=== PATIENT | female | born 1970 | race Caucasian/White ===

== ENCOUNTER 2018-09-19 07:58 | Emergency (ER) | payer BC, MEDICARE ==
[2018-09-19] MEDS ORDERED: Diazepam 5 MG TAB ONE (08:35)
[2018-09-19] MEDS ORDERED: Ketorolac Tromethamine 60 MG/2 ML VIAL ONE (08:35)
[2018-09-19] MEDS ORDERED: Triamcinolone 40 MG/ML VIAL IM SCH (09:00)
[2018-09-19 09:15] LABS: Bilirubin Negative (Negative); Blood, Urine Negative (Negative); Clarity CLEAR (Clear); Glucose, Urine (Dipstick) Negative (Negative); Leukocyte Small (Negative); Nitrite Negative (Negative); Protein, Urine (Dipstick) Negative (Neg-Trace); Specific Gravity, Urine 1.011 (1.002-1.036); Urobilinogen 0.2 mg/dL (0.2-1.0)
[2018-09-19] MEDS ORDERED: Morphine 4 MG/ML VIAL ONE (10:17)
--- NOTE | 2018-09-19 10:18 | RAD ---
LUMBAR SPINE THREE VIEWS: HISTORY: Low back pain. COMPARISON: MRI from 2013. FINDINGS: Interbody fusion hardware is unchanged at L5-S1. S1 is a lumbosacral transitional vertebra. There is anterolisthesis of L4/L5. There is mild narrowing at the L4-L5 and L3-L4 disk interspaces. No acute fracture or malalignment. IMPRESSION: Mild degenerative disc space height loss at L4-L5 with grade 1 anterolisthesis. POS: [facility]
== END 2018-09-19 11:32 | disposition home or self-care (01) ==
LOC: ERS 07:58
DX: M54.5 Low back pain (principal); E03.9 Hypothyroidism, unspecified; I10 Essential (primary) hypertension; F32.9 Major depressive disorder, single episode, unspecified; Z79.899 Other long term (current) drug therapy
CPT/HCPCS: 72100; 81003; 81015; 96372; J1885; J2270; J3301

== ENCOUNTER 2018-10-16 09:53 | Emergency (ER) | payer OTHER, MEDICARE ==
--- NOTE | 2018-10-16 10:39 | RAD ---
CHEST ONE VIEW: History: Chest pain. Headache. Comparison: 09-13-13 FINDINGS: Cardiac silhouette is magnified by projection. Pulmonary vasculature is unremarkable. Mediastinum is midline. No lobar consolidation or evidence of pneumothorax. Post-operative changes right shoulder. C ardiac monitor leads overlie the chest. IMPRESSION: No active cardiopulmonary abnormalities are demonstrated. POS: [facility]
[2018-10-16 10:41] LABS: #Basophils 0.1 thou/uL (0.0-0.2); #Eosinphils 0.1 thou/uL (0.0-0.7); #Lymphocytes 2.8 thou/uL (1.20-3.40); #Monocytes 0.6 thou/uL (0.11-0.59); #Neutrophils 5.6 thou/uL (1.40-6.50); %Basophils 1.1 % (0.0-1.0); %Eosinophils 1.3 % (0.0-10.0); %Lymphocytes 30.2 % (21.0-51.0); %Monocytes 6.8 % (0.0-10.0); %Neutrophils 60.6 % (42.0-75.0); Hemoglobin 15.6 g/dL (12.0-16.0); Mean Corpuscular HGB CONC 34.8 g/dL (32.0-36.0); Mean Corpuscular Hemoglobin 32.5 pg (27.0-31.0); Mean Corpuscular Volume 93.6 fL (78.0-98.0); Mean Platelet Volume 8.1 fL (7.4-10.4); Platelet Count 351 thou/uL (130-400); RBC Distribution Width 10.9 % (11.5-14.5); White Blood Cell (WBC) Count 9.2 thou/uL (4.8-10.8)
[2018-10-16] MEDS ORDERED: Ondansetron ODT 4 MG TAB ONE (10:58)
[2018-10-16 11:09] LABS: ALT (SGPT) 69 U/L (8-55); AST (SGOT) 63 U/L (5-34); Albumin 4.8 g/dL (3.5-5.0); Alkaline Phosphatase 75 U/L (40-150); Anion Gap 16 mmol/L (10-20); BUN (Urea Nitrogen) 15 mg/dL (7.0-18.7); Bilirubin, Total 1.5 mg/dL (0.2-1.2); Calc. Creatinine Clearance 0 mL/min (70-130); Calcium 10.7 mg/dL (7.8-10.44); Carbon Dioxide 23 mmol/L (22-29); Chloride 105 mmol/L (98-107); Estimated GFR-MDRD 63; Potassium 4.3 mmol/L (3.5-5.1); Protein, Total 7.8 g/dL (6.0-8.3); Sodium 140 mmol/L (136-145)
[2018-10-16] MEDS ORDERED: Acetaminophen 500 MG TAB ONE (12:03)
[2018-10-16 13:00] LABS: Glucose 101 mg/dL (70-105)
--- NOTE | 2018-10-20 13:28 | EKG ---
Test Reason : Blood Pressure : / mmHG Vent. Rate : 099 BPM Atrial Rate : 099 BPM P-R Int : 104 ms QRS Dur : 072 ms QT Int : 332 ms P-R-T Axes : 046 071 040 degrees QTc Int : 426 ms Poor data quality, interpretation may be adversely affected Sinus rhythm with sinus arrhythmia with short ID Otherwise normal ECG Confirmed by ITA ALEJANDRO ([id number]), communications editor DONAVON CARR ([id number] on 10/20/2018 1:28:31 PM Referred By: Confirmed By:ITA ALEJANDRO
== END 2018-10-16 15:07 | disposition home or self-care (01) ==
LOC: ERS 09:53
DX: R07.2 Precordial pain (principal); R51 Headache; E03.9 Hypothyroidism, unspecified; I10 Essential (primary) hypertension; F32.9 Major depressive disorder, single episode, unspecified
CPT/HCPCS: 36415; 71045; 80053; 84484; 85025; 93005; Q0162

== ENCOUNTER 2019-08-07 09:37 | Outpatient (CLI) | payer OTHER, MEDICARE ==
--- NOTE | 2019-08-07 10:52 | ULT ---
US Hepatic Doppler History: Abnormal LFTs Comparison: None. Findings: Real-time grayscale, color, and spectral analysis of the liver was performed. Visualized portion of the pancreas, aorta, and IVC are unremarkable. Diffuse increased hepatic echotexture without mass. Normal directional flow of the hepatic veins and portal veins. Normal phasicity. The hepatic parenchyma is poorly penetrated due to the increased echotexture. Liver measures 19 cm in length. Common bile duct measures 6-7 mm, normal for postcholecystectomy state. Prior cholecystectomy. Spleen measures 9.9 cm in length. Splenic artery and vein are patent. Impression: 1. Hepatomegaly with diffuse steatosis. 2. Normal directional flow within the hepatic vessels.
== END 2019-08-07 09:38 | disposition home or self-care (01) ==
LOC: ULT 09:37
PROVIDERS: ATTEND Physician Assistant Medical
DX: R94.5 Abnormal results of liver function studies (principal); R16.0 Hepatomegaly, not elsewhere classified; E88.89 Other specified metabolic disorders
CPT/HCPCS: 76705

== ENCOUNTER 2019-10-22 07:54 | Outpatient (CLI) | payer BC, MEDICARE ==
--- NOTE | 2019-10-22 12:38 | NM ---
EXAM: Nuclear medicine gastric emptying COMPARISON: None HISTORY: Abdominal pain TECHNIQUE: A nuclear medicine gastric emptying exam was administered after administration of 2.1 mCi of technetium 99m sulfur colloid mixed with eggs. FINDINGS: No gastroesophageal reflux was seen during the examination. 30 minute emptying is 35%. 60 minutes emptying is 12%. 120 minute emptying is 37 %. 180 minute emptying is 54 % T1/2 of gastric emptying is 168 minutes. IMPRESSION: Delayed gastric emptying
== END 2019-10-22 07:55 | disposition home or self-care (01) ==
LOC: NM 07:54
PROVIDERS: ATTEND Physician Assistant Medical
DX: K21.9 Gastro-esophageal reflux disease without esophagitis (principal); R13.19 Other dysphagia; R11.10 Vomiting, unspecified; K30 Functional dyspepsia
CPT/HCPCS: 78264; A9541

== ENCOUNTER → 2019-10-29 | Day surgery (SDC) | payer BC, MEDICARE | LOC: ENDO/OP 07:15 | PROVIDERS: ATTEND Internal Medicine Gastroenterology | DX: R13.10 Dysphagia, unspecified (principal); K21.9 Gastro-esophageal reflux disease without esophagitis; Z79.899 Other long term (current) drug therapy; Z87.891 Personal history of nicotine dependence; Z88.5 Allergy status to narcotic agent; Z88.8 Allergy status to other drugs, medicaments and biological substances; Z91.018 Allergy to other foods | CPT/HCPCS: 91010 ==

== ENCOUNTER 2022-01-13 13:14 | Outpatient (CLI) | payer BC, MEDICARE ==
[2022-01-13 14:17] LABS: Hemoglobin 12.9 g/dL (12.0-15.5); Mean Corpuscular HGB CONC 35.1 g/dL (32.0-36.0); Mean Corpuscular Hemoglobin 32.6 pg (27.0-33.0); Mean Corpuscular Volume 92.7 fl (81.6-98.3); Mean Platelet Volume 9.9 fl (7.4-10.4); Platelet Count 305 10x3/uL (150-450); RBC Distribution Width 11.6 % (11.5-14.5); Red Blood Cell (RBC) Count 3.96 10x6/uL (3.90-5.03); White Blood Cell (WBC) Count 9.4 10x3/uL (3.5-10.5)
[2022-01-13 14:18] LABS: Bilirubin Neg (Negative); Blood, Urine 250 (Negative); Clarity Clear (Clear); Glucose, Urine (Dipstick) Normal (Negative); Ketone, Urine Negative (Negative); Leukocyte 500 (Negative); Nitrite Negative (Negative); Protein, Urine (Dipstick) 100 mg/dl (Neg-Trace); Urobilinogen Normal mg/dL (Less than 2)
[2022-01-13 14:38] LABS: Bacteria/HPF Rare-Few HPF (None Seen); RBC/HPF 21-50 HPF (0-3); Squamous Epithelial 0-3 HPF (0-3)
[2022-01-13 15:22] LABS: Anion Gap 13 mmol/L (10-20); BUN (Urea Nitrogen) 8 mg/dL (9.8-20.1); Calc. Creatinine Clearance 0 mL/min (70-130); Calcium 9.6 mg/dL (7.8-10.44); Carbon Dioxide 27 mmol/L (22-29); Chloride 103 mmol/L (98-107); Glucose 94 mg/dL (70-105); Potassium 4.8 mmol/L (3.5-5.1); Sodium 138 mmol/L (136-145)
[2022-01-14 00:12] LABS: SARS-CoV-2 PCR by NAA Not Detected (NotDetected)
== END 2022-01-13 13:15 | disposition home or self-care (01) ==
LOC: LABBT 13:14
PROVIDERS: ATTEND Urology
DX: Z01.812 Encounter for preprocedural laboratory examination (principal); Z20.822 Contact with and (suspected) exposure to COVID-19
CPT/HCPCS: 80048; 81001; 85027; 87086; U0003; U0005

== ENCOUNTER 2022-01-31 10:19 | Inpatient (IN) | payer BC, MEDICARE ==
[~2022-01-31 10:19] MED LIST: Iopamidol-370 76% 500 ML 1 ML ONE
[2022-01-31] MEDS ORDERED: Ondansetron PF 4 MG/2 ML Vial ONE ×3 (10:47→16:44)
[2022-01-31] MEDS ORDERED: Morphine 4 MG/ML VIAL ONE ×2 (10:47→12:01)
[2022-01-31] MEDS ORDERED: Ketorolac Tromethamine 30 MG/ML VIAL ONE (11:13)
[2022-01-31 11:34] LABS: #Basophils 0.1 thou/uL (0.0-0.2); #Eosinphils 0.2 thou/uL (0.0-0.7); #Lymphocytes 2.3 thou/uL (1.20-3.40); #Monocytes 0.4 thou/uL (0.11-0.59); #Neutrophils 4.1 thou/uL (1.40-6.50); %Basophils 1.1 % (0.0-1.0); %Lymphocytes 32.5 % (21.0-51.0); %Monocytes 5.7 % (0.0-10.0); %Neutrophils 57.7 % (42.0-75.0); Hemoglobin 12.5 g/dL (12.0-16.0); Mean Corpuscular HGB CONC 33.9 g/dL (32.0-36.0); Mean Corpuscular Hemoglobin 33.4 pg (27.0-31.0); Mean Corpuscular Volume 98.6 fL (78.0-98.0); Mean Platelet Volume 7.1 fL (7.4-10.4); Platelet Count 262 thou/uL (130-400); RBC Distribution Width 10.7 % (11.5-14.5); Red Blood Cell (RBC) Count 3.73 mill/uL (4.20-5.40); White Blood Cell (WBC) Count 7.1 thou/uL (4.8-10.8)
[2022-01-31 11:47] LABS: ALT (SGPT) 20 U/L (8-55); AST (SGOT) 31 U/L (5-34); Alkaline Phosphatase 65 U/L (40-110); Anion Gap 15 mmol/L (10-20); BUN (Urea Nitrogen) 6 mg/dL (9.8-20.1); Bilirubin, Total 1.1 mg/dL (0.2-1.2); Calc. Creatinine Clearance 0 mL/min (70-130); Calcium 9.5 mg/dL (7.8-10.44); Carbon Dioxide 20 mmol/L (22-29); Chloride 105 mmol/L (98-107); Glucose 86 mg/dL (70-105); Potassium 4.7 mmol/L (3.5-5.1); Sodium 135 mmol/L (136-145)
[2022-01-31] MEDS ORDERED: HYDROcodone/Acetaminophen 5/325 mg Tablet ONE (13:32)
[2022-01-31 14:26] LABS: Bacteria/HPF None Seen HPF (None Seen); Bilirubin Negative (Negative); Blood, Urine 2+ (Negative); Clarity Clear (Clear); Glucose, Urine (Dipstick) Normal (Negative); Ketone, Urine Negative (Negative); Leukocyte 75 Leu/uL (Negative); Nitrite Negative (Negative); Protein, Urine (Dipstick) Negative (Neg-Trace); RBC/HPF Greater than 50 HPF (0-3); Specific Gravity, Urine 1.048 (1.002-1.036); Squamous Epithelial 0-3 HPF (0-3); Urobilinogen Normal mg/dL (Less than 2)
[2022-01-31] MEDS ORDERED: cefTRIAXone\\ROCEPHIN 2 GM VIAL ONE (15:35)
[2022-01-31] MEDS ORDERED: Fentanyl 100 MCG/2 ML VIAL ONE (15:36)
[2022-01-31] MEDS ORDERED: Ondansetron PF 4 MG/2 ML Vial IVP PRN (16:11)
[2022-01-31] MEDS ORDERED: HYDROcodone/Acetaminophen 5/325 mg Tablet PO PRN (16:11)
[2022-01-31] MEDS ORDERED: Bisacodyl 5 MG TAB PO PRN (16:11)
[2022-01-31 17:41] VITALS: BMI 23.1
[2022-01-31] MEDS ORDERED: diphenhydrAMINE 25 MG CAP PO PRN (17:42)
[2022-01-31] MEDS ORDERED: Naloxone HCl 0.4 mg/ml Vial IV PRN (17:42)
[2022-01-31] MEDS ORDERED: diphenhydrAMINE 50 MG/ML VIAL IVP PRN (17:42)
[2022-01-31] MEDS ORDERED: fentaNYL Citrate/PF 2,000 MCG in Sodium Chloride 0.9% 60 ML IV PRN (17:42)
[2022-01-31] MEDS ORDERED: diphenhydrAMINE 50 MG/ML VIAL IM PRN (17:42)
[2022-01-31] MEDS ORDERED: [UNRECOGNIZED DRUG - OTHER] FS SCH (17:45)
[2022-01-31] MEDS: Sodium Chloride 0.9% 1,000 ML IV SCH (18:13)
[2022-01-31 18:44] LABS: SARS-CoV-2 NAA Rapid Test Not Detected (NotDetected)
[2022-01-31] MEDS: Gabapentin 300 MG CAP PO SCH (20:00)
[2022-01-31] MEDS: Carvedilol 25 MG TAB PO SCH (20:01)
[2022-01-31] MEDS: Atorvastatin Calcium 10 MG TAB PO SCH (20:01)
[2022-01-31] MEDS: Zolpidem Tartrate 5 MG TAB PO PRN (20:40)
[2022-02-01] MEDS: Sodium Chloride 0.9% 1,000 ML IV SCH ×7 (01:10→23:22)
[2022-02-01 05:43] LABS: #Eosinphils 0.1 thou/uL (0.0-0.7); #Lymphocytes 1.1 thou/uL (1.20-3.40); #Monocytes 0.6 thou/uL (0.11-0.59); #Neutrophils 3.9 thou/uL (1.40-6.50); %Basophils 0.1 % (0.0-1.0); %Lymphocytes 19.3 % (21.0-51.0); %Monocytes 9.7 % (0.0-10.0); %Neutrophils 68.9 % (42.0-75.0); Hemoglobin 11.5 g/dL (12.0-16.0); Mean Corpuscular HGB CONC 34.1 g/dL (32.0-36.0); Mean Corpuscular Volume 99.8 fL (78.0-98.0); Mean Platelet Volume 7.2 fL (7.4-10.4); Platelet Count 224 thou/uL (130-400); RBC Distribution Width 10.9 % (11.5-14.5); Red Blood Cell (RBC) Count 3.38 mill/uL (4.20-5.40); White Blood Cell (WBC) Count 5.7 thou/uL (4.8-10.8)
[2022-02-01] MEDS: Levothyroxine Sodium 88 MCG TAB PO SCH (06:03)
[2022-02-01 06:21] LABS: Anion Gap 13 mmol/L (10-20); BUN (Urea Nitrogen) 6 mg/dL (9.8-20.1); Calc. Creatinine Clearance 81 mL/min (70-130); Calcium 8.6 mg/dL (7.8-10.44); Carbon Dioxide 24 mmol/L (22-29); Chloride 105 mmol/L (98-107); Glucose 119 mg/dL (70-105); Potassium 4.6 mmol/L (3.5-5.1); Sodium 137 mmol/L (136-145)
[2022-02-01] MEDS: Oxybutynin 5 MG TAB PO SCH (09:21)
[2022-02-01] MEDS: Carvedilol 25 MG TAB PO SCH ×2 (10:24→19:56)
[2022-02-01] MEDS: cefTRIAXone\\ROCEPHIN 1 GM in Sodium Chloride 0.9% 100 ML IVPB SCH (16:06)
[2022-02-01] MEDS: Ondansetron PF 4 MG/2 ML Vial IVP PRN (16:15)
[2022-02-01] MEDS: Acetaminophen 325 MG TAB PO PRN (18:06)
[2022-02-01] MEDS: Promethazine HCl 25 MG/ML VIAL IM PRN (18:47)
[2022-02-01] MEDS: Zolpidem Tartrate 5 MG TAB PO PRN (19:56)
[2022-02-01] MEDS: Atorvastatin Calcium 10 MG TAB PO SCH (19:56)
[2022-02-01] MEDS: Gabapentin 300 MG CAP PO SCH (19:56)
[2022-02-02] MEDS: Sodium Chloride 0.9% 1,000 ML IV SCH ×2 (05:55→12:34)
[2022-02-02] MEDS: Levothyroxine Sodium 88 MCG TAB PO SCH (05:55)
[2022-02-02] MEDS: Oxybutynin 5 MG TAB PO SCH (08:43)
[2022-02-02] MEDS: Carvedilol 25 MG TAB PO SCH ×2 (08:44→21:19)
[2022-02-02] MEDS: Promethazine HCl 25 MG/ML VIAL IM PRN (14:27)
[2022-02-02] MEDS: Acetaminophen 325 MG TAB PO PRN (14:33)
[2022-02-02] MEDS: cefTRIAXone\\ROCEPHIN 1 GM in Sodium Chloride 0.9% 100 ML IVPB SCH (15:10)
[2022-02-02] MEDS ORDERED: traZODone HCl 50 MG TAB PO PRN (16:08)
[2022-02-02] MEDS ORDERED: fentaNYL Citrate/PF 2,000 MCG in Sodium Chloride 0.9% 60 ML IV PRN (18:54)
[2022-02-02] MEDS: Trospium 20 MG TAB PO SCH (21:19)
[2022-02-02] MEDS: Atorvastatin Calcium 10 MG TAB PO SCH (21:20)
[2022-02-02] MEDS: Gabapentin 300 MG CAP PO SCH (21:20)
[2022-02-02] MEDS: Zolpidem Tartrate 5 MG TAB PO PRN (21:47)
[2022-02-03] MEDS: Levothyroxine Sodium 88 MCG TAB PO SCH (05:35)
[2022-02-03] MEDS: Acetaminophen 325 MG TAB PO PRN ×2 (05:38→09:13)
[2022-02-03] MEDS: Tamsulosin HCl 0.4 MG CAP PO SCH (09:10)
[2022-02-03] MEDS: Oxybutynin 5 MG TAB PO SCH (09:10)
[2022-02-03] MEDS: Trospium 20 MG TAB PO SCH ×2 (09:10→20:15)
[2022-02-03] MEDS: Carvedilol 25 MG TAB PO SCH ×2 (09:10→20:15)
[2022-02-03] MEDS ORDERED: HYDROcodone/Acetaminophen 10/325 mg Tablet PO PRN (10:37)
[2022-02-03] MEDS ORDERED: traMADol HCl 50 MG TAB PO PRN ×2 (10:39)
[2022-02-03] MEDS ORDERED: HYDROcodone/Acetaminophen 10/325 mg Tablet PO SCH (10:45)
[2022-02-03] MEDS: HYDROcodone/Acetaminophen 10/325 mg Tablet PO PRN (14:06)
[2022-02-03] MEDS: Fentanyl 100 MCG/2 ML VIAL SLOW IVP PRN ×3 (15:36→23:59)
[2022-02-03] MEDS: Ondansetron PF 4 MG/2 ML Vial IVP PRN (16:35)
[2022-02-03] MEDS: Promethazine HCl 25 MG/ML VIAL IM PRN ×2 (16:38→23:55)
[2022-02-03] MEDS: Atorvastatin Calcium 10 MG TAB PO SCH (20:15)
[2022-02-03] MEDS: Gabapentin 300 MG CAP PO SCH (20:15)
[2022-02-03] MEDS: Zolpidem Tartrate 5 MG TAB PO PRN (20:23)
[2022-02-04] MEDS: Fentanyl 100 MCG/2 ML VIAL SLOW IVP PRN ×2 (03:36→06:04)
[2022-02-04] MEDS: Levothyroxine Sodium 88 MCG TAB PO SCH (06:03)
[2022-02-04] MEDS: Trospium 20 MG TAB PO SCH (08:44)
[2022-02-04] MEDS: Carvedilol 25 MG TAB PO SCH (08:45)
[2022-02-04] MEDS: Tamsulosin HCl 0.4 MG CAP PO SCH (08:45)
[2022-02-04] MEDS: Oxybutynin 5 MG TAB PO SCH (08:45)
[2022-02-04 08:46] VITALS: BP 146/90; TEMP 99.4
[2022-02-04] MEDS: HYDROcodone/Acetaminophen 10/325 mg Tablet PO PRN (13:19)
== END 2022-02-04 13:40 | disposition home or self-care (01) | DRG 690 ==
LOC: ERS 10:19 → MSONC 16:03 → OBSVTOIN 02-01 11:51
PROVIDERS: ADMIT Internal Medicine; ATTEND Internal Medicine
DX: N13.6 Pyonephrosis (principal); Z20.822 Contact with and (suspected) exposure to COVID-19; E03.9 Hypothyroidism, unspecified; M54.9 Dorsalgia, unspecified; G89.29 Other chronic pain; I10 Essential (primary) hypertension; Z88.5 Allergy status to narcotic agent; Z88.8 Allergy status to other drugs, medicaments and biological substances; Z91.018 Allergy to other foods; Z79.890 Hormone replacement therapy; Z79.899 Other long term (current) drug therapy; Z90.710 Acquired absence of both cervix and uterus; Z90.49 Acquired absence of other specified parts of digestive tract; Z98.890 Other specified postprocedural states
CPT/HCPCS: 36415; 74178; 80048; 80053; 81003; 81015; 85025; 87086; 96365; 96375; 96376; J0696; J1885; J2270; J2405; J2550; J3010; J3490; J7050; Q9967; U0002

== ENCOUNTER 2022-03-17 13:50 | Outpatient (CLI) | payer BC, MEDICARE | END 2022-03-17 13:51 | disposition home or self-care (01) | LOC: BICULT 13:50 | PROVIDERS: ATTEND Urology | DX: N13.5 Crossing vessel and stricture of ureter without hydronephrosis (principal) | CPT/HCPCS: 76770 ==

== ENCOUNTER 2023-05-31 20:27 | Observation (INO) | payer BC, MEDICARE ==
[~2023-05-31 20:27] MED LIST changes: -Iopamidol-370 76% 500 ML 1 ML ONE; +Iopamidol-370 76% 500 ML MDV (1 ML CHARGE) ONE
[2023-05-31 20:58] LABS: #Eosinphils 0.1 thou/uL (0.0-0.7); #Monocytes 0.6 thou/uL (0.11-0.59); #Neutrophils 6.3 thou/uL (1.40-6.50); %Basophils 0.3 % (0.0-1.0); %Eosinophils 0.6 % (0.0-10.0); %Lymphocytes 26.8 % (21.0-51.0); %Monocytes 6.6 % (0.0-10.0); %Neutrophils 65.3 % (42.0-75.0); Hematocrit 36.2 % (36.0-47.0); Hemoglobin 12.6 g/dL (12.0-16.0); Mean Corpuscular HGB CONC 34.8 g/dL (32.0-36.0); Mean Corpuscular Hemoglobin 32.9 pg (27.0-31.0); Mean Corpuscular Volume 94.5 fl (78.0-98.0); Mean Platelet Volume 9.7 fL (7.4-10.4); Platelet Count 264 10x3/uL (130-400); RBC Distribution Width 12.2 % (11.5-14.5); Red Blood Cell (RBC) Count 3.83 mill/uL (4.20-5.40); White Blood Cell (WBC) Count 9.6 10x3/uL (4.8-10.8)
[2023-05-31 21:18] LABS: Acetaminophen Less than 10 mcg/mL (10.0-30.0); Alcohol Less than 10.0 mg/dL (Less than 10); Lipase 42 U/L (8-78); Magnesium 2.2 mg/dL (1.6-2.6); Salicylate Less than 8.0 mg/dL (15.0-30.0)
[2023-05-31 21:19] LABS: Troponin I 0.011 ng/mL (< 0.028)
[2023-05-31 21:27] LABS: ALT (SGPT) 51 U/L (8-55); AST (SGOT) 29 U/L (5-34); Alkaline Phosphatase 69 U/L (40-110); Anion Gap 15 mmol/L (10-20); BUN (Urea Nitrogen) 15 mg/dL (9.8-20.1); Bilirubin, Total 1.2 mg/dL (0.2-1.2); Calc. Creatinine Clearance 0 mL/min (70-130); Calcium 9.4 mg/dL (7.8-10.44); Carbon Dioxide 21 mmol/L (22-29); Chloride 105 mmol/L (98-107); Estimated GFR 88; Globulin 2.7 g/dL (2.4-3.5); Glucose 90 mg/dL (70-105); Potassium 4.4 mmol/L (3.5-5.1); Protein, Total 6.7 g/dL (6.0-8.3); Sodium 137 mmol/L (136-145)
[2023-05-31 21:29] LABS: PTT 26.6 sec (22.9-36.1); Prothrombin Time 13.7 sec (12.0-14.7)
[2023-05-31] MEDS ORDERED: Aspirin 325 MG TAB ONE (23:41)
[2023-06-01] MEDS ORDERED: Ondansetron ODT 4 MG TAB PO PRN
[2023-06-01] MEDS ORDERED: hydrALAZINE 20 MG/ML VIAL SLOW IVP PRN
[2023-06-01] MEDS ORDERED: Acetaminophen 325 MG TAB PO PRN
[2023-06-01] MEDS ORDERED: Acetaminophen 650 MG Suppository PR PRN
[2023-06-01] MEDS ORDERED: Cyclobenzaprine 10 MG TAB PO PRN ×2 (00:40→16:43)
[2023-06-01] MEDS ORDERED: HYDROcodone/Acetaminophen 10/325 mg Tablet PO PRN (00:41)
[2023-06-01] MEDS: Ondansetron PF 4 MG/2 ML Vial IVP PRN ×3 (00:59→09:07)
[2023-06-01] MEDS: Morphine 4 MG/ML VIAL SLOW IVP PRN ×4 (00:59→15:40)
[2023-06-01 03:38] VITALS: BMI 23.6
[2023-06-01 04:54] LABS: #Eosinphils 0.1 thou/uL (0.0-0.7); #Monocytes 0.8 thou/uL (0.11-0.59); #Neutrophils 7.6 thou/uL (1.40-6.50); %Basophils 0.3 % (0.0-1.0); %Eosinophils 0.5 % (0.0-10.0); %Lymphocytes 22.1 % (21.0-51.0); %Monocytes 7.5 % (0.0-10.0); %Neutrophils 69.1 % (42.0-75.0); Hematocrit 36.8 % (36.0-47.0); Hemoglobin 12.8 g/dL (12.0-16.0); Mean Corpuscular HGB CONC 34.8 g/dL (32.0-36.0); Mean Corpuscular Volume 94.8 fl (78.0-98.0); Mean Platelet Volume 9.8 fL (7.4-10.4); Platelet Count 222 10x3/uL (130-400); RBC Distribution Width 12.2 % (11.5-14.5); Red Blood Cell (RBC) Count 3.88 mill/uL (4.20-5.40)
[2023-06-01 05:20] LABS: Anion Gap 18 mmol/L (10-20); BUN (Urea Nitrogen) 15 mg/dL (9.8-20.1); Calc. Creatinine Clearance 96 mL/min (70-130); Calcium 9.5 mg/dL (7.8-10.44); Carbon Dioxide 19 mmol/L (22-29); Cardiac Risk 1.9 (Less than 4.5); Chloride 103 mmol/L (98-107); Cholesterol 137 mg/dl (< 200 Desired); Estimated GFR 105; Glucose 82 mg/dL (70-105); HDL Cholesterol 73 mg/dL (>60 Neg Risk); LDL Cholesterol, Calculated 51 mg/dL; Potassium 4.2 mmol/L (3.5-5.1); Sodium 136 mmol/L (136-145); Triglycerides 67 mg/dL (Less than 150)
[2023-06-01 05:24] LABS: Troponin I Less than 0.010 ng/mL (< 0.028)
[2023-06-01] MEDS ORDERED: Cyanocobalamin 1000 MCG/ML VIAL SC SCH ×2 (08:00→09:00)
[2023-06-01] MEDS ORDERED: Promethazine HCl 12.5 MG in Sodium Chloride 0.9% 50 ML IVPB PRN (08:02)
[2023-06-01] MEDS: Multivit, Therapeutic 1 TAB PO SCH (08:59)
[2023-06-01] MEDS: Carvedilol 3.125 MG TAB PO SCH ×2 (08:59→19:52)
[2023-06-01] MEDS: Estradiol 1 MG TAB PO SCH (08:59)
[2023-06-01] MEDS ORDERED: Estradiol 0.01% Vaginal Cream 42.5 gm Tube VAG SCH (09:00)
[2023-06-01] MEDS ORDERED: Non-Formulary Item 1 EACH (Carvedilol [Carvedilol] 12.5 MG Tablet) PO SCH (09:00)
[2023-06-01] MEDS ORDERED: Non-Formulary Item 1 EACH (Estradiol [Estradiol] 2 MG Tablet) PO SCH (09:00)
[2023-06-01] MEDS ORDERED: Promethazine HCl 25 MG in Sodium Chloride 0.9% 50 ML IVPB SCH (09:00)
[2023-06-01] MEDS: Aspirin 81 mg Enteric Coated Tablet PO SCH (09:00)
[2023-06-01] MEDS ORDERED: LEVOTHYROXINE SODIUM 88 MCG PO SCH (09:00)
[2023-06-01] MEDS ORDERED: MINOCYCLINE HCL 100 MG PO SCH (09:00)
[2023-06-01] MEDS: Senokot S 8.6-50 MG TAB PO SCH ×2 (09:00→19:52)
[2023-06-01] MEDS ORDERED: Non-Formulary Item 1 EACH (Carvedilol [Carvedilol] 3.125 MG) PO SCH (09:00)
[2023-06-01] MEDS ORDERED: Senokot S 8.6-50 MG TAB PO SCH (09:00)
[2023-06-01] MEDS ORDERED: Lorazepam 2 MG/ML VIAL SLOW IVP SCH (09:15)
[2023-06-01] MEDS: Minocycline HCl 50 MG CAP PO SCH (10:43)
[2023-06-01] MEDS: Sodium Chloride 0.9% 1,000 ML IV SCH ×2 (10:43→19:04)
[2023-06-01] MEDS ORDERED: Famotidine 20 MG TAB PO PRN (15:37)
[2023-06-01] MEDS ORDERED: Calcium Carbonate 500 MG ChewTAB PO PRN (15:38)
[2023-06-01] MEDS: HYDROcodone/Acetaminophen 10/325 mg Tablet PO PRN ×2 (18:09→23:11)
[2023-06-01] MEDS: Morphine 2 MG/ML VIAL SLOW IVP PRN (19:47)
[2023-06-01] MEDS ORDERED: Atorvastatin Calcium 10 MG TAB PO SCH (21:00)
[2023-06-01] MEDS ORDERED: Pravastatin Sodium 40 MG TAB PO SCH (21:00)
[2023-06-02] MEDS: Morphine 2 MG/ML VIAL SLOW IVP PRN ×4 (00:52→14:34)
[2023-06-02] MEDS: Sodium Chloride 0.9% 1,000 ML IV SCH ×2 (02:00→09:24)
[2023-06-02] MEDS ORDERED: Levothyroxine Sodium 88 MCG TAB PO SCH (06:00)
[2023-06-02] MEDS: HYDROcodone/Acetaminophen 10/325 mg Tablet PO PRN ×2 (06:51→11:32)
[2023-06-02] MEDS ORDERED: Fioricet 325/50/40 mg Tablet PO PRN (07:55)
[2023-06-02] MEDS ORDERED: Fioricet 325/50/40 mg Tablet PO SCH (08:00)
[2023-06-02] MEDS: Carvedilol 3.125 MG TAB PO SCH (09:10)
[2023-06-02] MEDS: Estradiol 1 MG TAB PO SCH (09:10)
[2023-06-02] MEDS: Senokot S 8.6-50 MG TAB PO SCH (09:10)
[2023-06-02] MEDS: Multivit, Therapeutic 1 TAB PO SCH (09:10)
[2023-06-02] MEDS: Aspirin 81 mg Enteric Coated Tablet PO SCH (09:10)
[2023-06-02] MEDS: Minocycline HCl 50 MG CAP PO SCH (09:18)
[2023-06-02 12:21] VITALS: BP 136/80; TEMP 98.1
== END 2023-06-02 15:28 | disposition home or self-care (01) ==
LOC: ERS 20:27 → 2SE 22:23
PROVIDERS: ADMIT Student in an Organized Health Care Education/Training Program; ATTEND Family Medicine
DX: G93.41 Metabolic encephalopathy (principal); E03.9 Hypothyroidism, unspecified; I10 Essential (primary) hypertension; M25.511 Pain in right shoulder; G89.4 Chronic pain syndrome; R41.82 Altered mental status, unspecified; M54.50 Low back pain, unspecified; Z98.890 Other specified postprocedural states; Z90.710 Acquired absence of both cervix and uterus; Z90.49 Acquired absence of other specified parts of digestive tract; Z90.89 Acquired absence of other organs; Z79.890 Hormone replacement therapy; Z79.82 Long term (current) use of aspirin; Z79.899 Other long term (current) drug therapy; Z88.8 Allergy status to other drugs, medicaments and biological substances; Z91.018 Allergy to other foods; Z88.5 Allergy status to narcotic agent
CPT/HCPCS: 36415; 36416; 51798; 70450; 70496; 70498; 71045; 72125; 80048; 80053; 80061; 80307; 83690; 83735; 83880; 84443; 84484; 85025; 85610; 85730; 93005; 96361; 96372; 96374; 96375; 96376; G0378; J2270; J2272; J2405; J2550; J3420; J7050; Q9967

== ENCOUNTER 2024-11-01 13:42 | Outpatient (CLI) | payer MEDICARE, BC | END 2024-11-01 13:43 | disposition home or self-care (01) | LOC: SCSRAD 13:42 | PROVIDERS: ATTEND Orthopaedic Surgery | DX: M54.50 Low back pain, unspecified (principal); M46.1 Sacroiliitis, not elsewhere classified; M54.2 Cervicalgia; M47.812 Spondylosis without myelopathy or radiculopathy, cervical region; M47.816 Spondylosis without myelopathy or radiculopathy, lumbar region; Z98.890 Other specified postprocedural states | CPT/HCPCS: 72040; 72100; 72190 ==

== ENCOUNTER 2025-05-01 16:01 | Inpatient (IN) | payer BC, MEDICARE ==
[2025-05-01 17:37] LABS: #Basophils 0.04 10x3/uL (0.0-0.2); #Eosinophils 0.48 10x3/uL (0.0-0.7); #Monocytes 0.67 10x3/uL (0.11-0.59); #Neutrophils 5.00 10x3/uL (1.40-6.50); %Basophils 0.5 % (0.0-1.0); %Eosinophils 5.5 % (0.0-10.0); %Lymphocytes 28.8 % (21.0-51.0); %Monocytes 7.7 % (0.0-10.0); %Neutrophils 57.2 % (42.0-75.0); Hematocrit 36.6 % (36.0-47.0); Hemoglobin 12.5 g/dL (12.0-16.0); Mean Corpuscular Hemoglobin 32.1 pg (27.0-31.0); Mean Corpuscular Volume 94.1 fL (78.0-98.0); Platelet Count 116 10x3/uL (130-400); Red Blood Cell (RBC) Count 3.89 mill/uL (4.20-5.40); White Blood Cell (WBC) Count 8.73 10x3/uL (4.8-10.8)
[2025-05-01 17:49] LABS: ALT (SGPT) 41 U/L (Less than 34); AST (SGOT) 32 U/L (11-34); Albumin 4.2 g/dL (3.1-4.5); Alkaline Phosphatase 88 U/L (40-110); Anion Gap 15 mmol/L (10-20); BUN (Urea Nitrogen) 12 mg/dL (9.8-20.1); Bilirubin, Total 1.1 mg/dL (0.3-1.2); Calc. Creatinine Clearance 0 mL/min (70-130); Calcium 9.8 mg/dL (7.8-10.44); Carbon Dioxide 24 mmol/L (22-29); Chloride 101 mmol/L (98-107); Globulin 3.7 g/dL (2.4-3.5); Glucose 96 mg/dL (70-105); Potassium 4.4 mmol/L (3.5-5.1); Sodium 136 mmol/L (136-145)
[2025-05-01 19:26] LABS: Macrocytosis SLIGHT = 6-15 cells HPF (0-5); Ovalocytes SLIGHT = 2-5 cells HPF (0-1); Platelet Adequacy Comment Platelets Decreased
[2025-05-01 20:10] LABS: Bacteria/HPF None Seen HPF (None Seen); CAUTI Indications for Culture Dysuria,urgency,freq; Glucose, Urine (Dipstick) Normal (Negative); Leukocyte 25 Leu/uL (Negative); Protein, Urine (Dipstick) Negative (Neg-Trace); RBC/HPF None Seen HPF (0-3); Specific Gravity, Urine 1.009 (1.002-1.036)
[2025-05-01 20:19] LABS: Urine Culture Reflex No No
[2025-05-01] MEDS ORDERED: Dexamethasone 10 MG/ML VIAL ONE (21:14)
[2025-05-01] MEDS ORDERED: Acetaminophen 325 MG TAB PO PRN (23:43)
[2025-05-02] MEDS: Caffeine/Sodium Benzoate 0.5 GM in Sodium Chloride 0.9% 1,000 ML IVPB SCH (02:42)
[2025-05-02] MEDS: HYDROmorphone 0.5 MG/0.5 ML SYRINGE SLOW IVP PRN (02:47)
[2025-05-02] MEDS: Gabapentin 300 MG CAP PO SCH ×2 (02:48→09:46)
[2025-05-02] MEDS: Cyclobenzaprine 10 MG TAB PO PRN (02:48)
[2025-05-02 04:10] VITALS: BMI 24.5
[2025-05-02] MEDS: oxyCODONE 5 MG TAB PO PRN (04:31)
[2025-05-02 05:52] LABS: #Basophils Less than 0.03 10x3/uL (0.0-0.2); #Eosinophils Less than 0.03 10x3/uL (0.0-0.7); #Monocytes 0.09 10x3/uL (0.11-0.59); #Neutrophils 5.58 10x3/uL (1.40-6.50); %Basophils 0.2 % (0.0-1.0); %Eosinophils 0.2 % (0.0-10.0); %Lymphocytes 13.5 % (21.0-51.0); %Monocytes 1.4 % (0.0-10.0); %Neutrophils 84.2 % (42.0-75.0); Hematocrit 30.7 % (36.0-47.0); Hemoglobin 10.8 g/dL (12.0-16.0); Mean Corpuscular Hemoglobin 32.5 pg (27.0-31.0); Mean Corpuscular Volume 92.5 fL (78.0-98.0); Platelet Count 246 10x3/uL (130-400); Red Blood Cell (RBC) Count 3.32 mill/uL (4.20-5.40); White Blood Cell (WBC) Count 6.61 10x3/uL (4.8-10.8)
[2025-05-02] MEDS: Ketorolac Tromethamine 30 MG (1 mL) VIAL IVP PRN (06:00)
[2025-05-02 06:01] LABS: Anion Gap 13 mmol/L (10-20); BUN (Urea Nitrogen) 8 mg/dL (9.8-20.1); Calc. Creatinine Clearance 129 mL/min (70-130); Calcium 9.2 mg/dL (7.8-10.44); Carbon Dioxide 22 mmol/L (22-29); Chloride 102 mmol/L (98-107); Glucose 167 mg/dL (70-105); Potassium 4.0 mmol/L (3.5-5.1); Sodium 133 mmol/L (136-145)
[2025-05-02] MEDS: Ondansetron PF 4 MG/2 ML Vial IVP PRN (06:02)
[2025-05-02] MEDS: Acetaminophen 500 MG TAB PO SCH (09:47)
[2025-05-02] MEDS: Carvedilol 6.25 MG TAB PO SCH (09:48)
[2025-05-02] MEDS: Senokot S 8.6-50 MG TAB PO SCH (09:48)
[2025-05-02] MEDS: ALPRAZolam 0.5 MG TAB PO SCH (18:12)
[2025-05-03 12:03] VITALS: TEMP 98
[2025-05-03] MEDS: Ketorolac Tromethamine 30 MG (1 mL) VIAL IVP PRN (13:45)
[2025-05-03 16:01] VITALS: BP 127/86
== END 2025-05-03 16:01 | disposition home or self-care (01) | DRG 552 ==
LOC: ERS 16:01 → SURG B 23:46 → OBSVTOIN 05-02 17:18
PROVIDERS: ADMIT Internal Medicine; ATTEND Internal Medicine
DX: M54.9 Dorsalgia, unspecified (principal); R20.0 Anesthesia of skin; G62.9 Polyneuropathy, unspecified; K59.00 Constipation, unspecified; E03.9 Hypothyroidism, unspecified; Z98.84 Bariatric surgery status; Z87.442 Personal history of urinary calculi; Z98.890 Other specified postprocedural states; Z88.8 Allergy status to other drugs, medicaments and biological substances; Z88.5 Allergy status to narcotic agent; Z88.1 Allergy status to other antibiotic agents; Z91.018 Allergy to other foods; Z79.899 Other long term (current) drug therapy; Z90.49 Acquired absence of other specified parts of digestive tract
CPT/HCPCS: 36415; 72131; 72149; 80048; 80053; 81001; 83605; 85025; 86141; 96375; 96376; G0378; J0706; J1100; J1171; J1885; J2270; J2405; J7030; Q0162; Q0169

== ENCOUNTER 2025-08-15 13:19 | Inpatient (IN) | payer MEDICARE ==
[2025-08-15 14:43] LABS: #Basophils 0.03 10x3/uL (0.0-0.2); #Eosinophils 0.11 10x3/uL (0.0-0.7); #Monocytes 0.48 10x3/uL (0.11-0.59); #Neutrophils 8.89 10x3/uL (1.40-6.50); %Basophils 0.3 % (0.0-1.0); %Eosinophils 1.0 % (0.0-10.0); %Lymphocytes 14.9 % (21.0-51.0); %Monocytes 4.3 % (0.0-10.0); %Neutrophils 79.3 % (42.0-75.0); Hematocrit 36.4 % (36.0-47.0); Hemoglobin 12.2 g/dL (12.0-16.0); Mean Corpuscular Hemoglobin 31.4 pg (27.0-31.0); Mean Corpuscular Volume 93.8 fL (78.0-98.0); Platelet Count 242 10x3/uL (130-400); Red Blood Cell (RBC) Count 3.88 mill/uL (4.20-5.40); White Blood Cell (WBC) Count 11.20 10x3/uL (4.8-10.8)
[2025-08-15 15:04] LABS: INR-International Normal Ratio 0.9; PTT 27.2 sec (22.9-36.1); Prothrombin Time 12.4 sec (12.0-14.7)
[2025-08-15 15:08] LABS: ALT (SGPT) 120 U/L (Less than 34); AST (SGOT) 68 U/L (11-34); Albumin 3.9 g/dL (3.1-4.5); Alkaline Phosphatase 121 U/L (40-110); Anion Gap 16 mmol/L (10-20); BUN (Urea Nitrogen) 9 mg/dL (9.8-20.1); Bilirubin, Total 0.7 mg/dL (0.3-1.2); Calc. Creatinine Clearance 0 mL/min (70-130); Calcium 9.4 mg/dL (7.8-10.44); Carbon Dioxide 26 mmol/L (22-29); Chloride 105 mmol/L (98-107); Globulin 3.1 g/dL (2.4-3.5); Glucose 128 mg/dL (70-105); Potassium 3.6 mmol/L (3.5-5.1); Sodium 143 mmol/L (136-145)
[2025-08-15] MEDS ORDERED: cefTRIAXone (ROCEPHIN) 2 GM VIAL ONE (15:33)
[2025-08-15] MEDS ORDERED: Acetaminophen 325 MG TAB PO PRN (18:07)
[2025-08-15] MEDS: Vancomycin 1.5 GM / NS 500ML VIAL-2-BAG IVPB SCH (18:15)
[2025-08-15 18:18] VITALS: BMI 22.1
[2025-08-15] MEDS: Gabapentin 300 MG CAP PO SCH (20:40)
[2025-08-15] MEDS: Ondansetron PF 4 MG/2 ML Vial IVP PRN (20:40)
[2025-08-16] MEDS: Vancomycin 1 GM in Premix 1 BAG IVPB SCH (05:12)
[2025-08-16] MEDS: oxyCODONE 5 MG TAB PO PRN (05:24)
[2025-08-16 07:41] LABS: #Basophils 0.03 10x3/uL (0.0-0.2); #Eosinophils 0.23 10x3/uL (0.0-0.7); #Monocytes 0.53 10x3/uL (0.11-0.59); #Neutrophils 4.23 10x3/uL (1.40-6.50); %Basophils 0.4 % (0.0-1.0); %Eosinophils 3.4 % (0.0-10.0); %Lymphocytes 26.1 % (21.0-51.0); %Monocytes 7.8 % (0.0-10.0); %Neutrophils 62.2 % (42.0-75.0); Hematocrit 35.6 % (36.0-47.0); Hemoglobin 11.5 g/dL (12.0-16.0); Mean Corpuscular Hemoglobin 30.7 pg (27.0-31.0); Mean Corpuscular Volume 94.9 fL (78.0-98.0); Platelet Count 223 10x3/uL (130-400); Red Blood Cell (RBC) Count 3.75 mill/uL (4.20-5.40); White Blood Cell (WBC) Count 6.81 10x3/uL (4.8-10.8)
[2025-08-16 08:20] LABS: Anion Gap 11 mmol/L (10-20); BUN (Urea Nitrogen) 8 mg/dL (9.8-20.1); Calc. Creatinine Clearance 117 mL/min (70-130); Calcium 8.5 mg/dL (7.8-10.44); Carbon Dioxide 25 mmol/L (22-29); Chloride 107 mmol/L (98-107); Glucose 112 mg/dL (70-105); Potassium 4.1 mmol/L (3.5-5.1); Sodium 139 mmol/L (136-145)
[2025-08-16 08:21] LABS: Vancomycin, Random 34.4 ug/mL (See Comment)
[2025-08-16] MEDS: Cyclobenzaprine 10 MG TAB PO SCH (08:52)
[2025-08-16] MEDS: Enoxaparin 40 MG (0.4 mL) SYRINGE SC SCH (08:53)
[2025-08-16] MEDS: cefTRIAXone\\ROCEPHIN 2 GM in Sodium Chloride 0.9% 100 ML IVPB SCH (16:00)
[2025-08-16] MEDS: Carvedilol 6.25 MG TAB PO SCH (20:06)
[2025-08-16] MEDS: Pantoprazole 40 MG DR.TAB PO SCH (20:06)
[2025-08-17 07:32] LABS: Anion Gap 15 mmol/L (10-20); BUN (Urea Nitrogen) 6 mg/dL (9.8-20.1); Calc. Creatinine Clearance 110 mL/min (70-130); Calcium 8.9 mg/dL (7.8-10.44); Carbon Dioxide 24 mmol/L (22-29); Chloride 107 mmol/L (98-107); Glucose 97 mg/dL (70-105); Potassium 4.3 mmol/L (3.5-5.1); Sodium 142 mmol/L (136-145)
[2025-08-17 07:49] LABS: #Basophils 0.05 10x3/uL (0.0-0.2); #Eosinophils 0.40 10x3/uL (0.0-0.7); #Monocytes 0.68 10x3/uL (0.11-0.59); #Neutrophils 4.87 10x3/uL (1.40-6.50); %Basophils 0.6 % (0.0-1.0); %Eosinophils 4.6 % (0.0-10.0); %Lymphocytes 29.5 % (21.0-51.0); %Monocytes 7.9 % (0.0-10.0); %Neutrophils 56.6 % (42.0-75.0); Hematocrit 36.6 % (36.0-47.0); Hemoglobin 12.8 g/dL (12.0-16.0); Mean Corpuscular Hemoglobin 32.1 pg (27.0-31.0); Mean Corpuscular Volume 91.7 fL (78.0-98.0); Platelet Count 234 10x3/uL (130-400); Red Blood Cell (RBC) Count 3.99 mill/uL (4.20-5.40); White Blood Cell (WBC) Count 8.61 10x3/uL (4.8-10.8)
[2025-08-17] MEDS: Estradiol 1 MG TAB PO SCH (10:03)
[2025-08-17] MEDS: Oxybutynin 5 MG TAB PO SCH (10:03)
[2025-08-17 13:13] VITALS: BP 119/81; TEMP 97.9
== END 2025-08-17 13:21 | disposition home or self-care (01) | DRG 603 ==
LOC: ERS 13:19 → T4-A 17:08 → INTOOBSV 17:08 → OBSVTOIN 08-16 19:37
PROVIDERS: ADMIT Internal Medicine; ATTEND Internal Medicine
DX: L03.115 Cellulitis of right lower limb (principal); K50.90 Crohn's disease, unspecified, without complications; E87.20 Acidosis, unspecified; L89.899 Pressure ulcer of other site, unspecified stage; M54.50 Low back pain, unspecified; E03.9 Hypothyroidism, unspecified; K22.2 Esophageal obstruction; K21.9 Gastro-esophageal reflux disease without esophagitis; R13.10 Dysphagia, unspecified; I10 Essential (primary) hypertension; M21.371 Foot drop, right foot; G43.909 Migraine, unspecified, not intractable, without status migrainosus; R89.0 Abnormal level of enzymes in specimens from other organs, systems and tissues; G62.9 Polyneuropathy, unspecified; F32.A Depression, unspecified; Z98.890 Other specified postprocedural states; Z90.49 Acquired absence of other specified parts of digestive tract; Z98.84 Bariatric surgery status; Z88.5 Allergy status to narcotic agent; Z88.8 Allergy status to other drugs, medicaments and biological substances; Z91.018 Allergy to other foods; Z88.6 Allergy status to analgesic agent; Z96.82 Presence of neurostimulator
CPT/HCPCS: 36415; 72170; 74018; 80048; 80053; 80202; 83036; 83605; 85025; 85610; 85730; 86141; 87040; 87070; 87077; 87081; 87186; 87205; 96365; 96372; 96375; 96376; 97139; G0378; J0696; J1650; J2405; J3373; J7030